=== PATIENT | female | born 1975 | race Caucasian/White ===

== ENCOUNTER 2017-10-31 11:32 | Observation (INO) ==
[2017-10-31] MEDS ORDERED: SODIUM CHLORIDE 0.9% IVPB ONE (13:54)
[2017-10-31] MEDS ORDERED: OXYCODONE Oral CONC 10 MG/0.5 ML ORAL.SYG SL PRN (13:54)
[2017-10-31] MEDS ORDERED: Ondansetron 4 MG/2 ML VIAL IVP PRN (13:54)
[2017-10-31] MEDS ORDERED: *HR* Promethazine 25 MG/ML VIAL IVP PRN (13:54)
[2017-10-31] MEDS ORDERED: VANCOMYCIN IVPB ONE (13:54)
[2017-10-31] MEDS ORDERED: Naloxone 0.4 MG/ML INJ IVP PRN (13:54)
[2017-10-31 14:35] LABS: Basophils # 0.1 K/mcL (0.0-0.2); Basophils % 0.6 %; Eosinophils # 0.4 K/mcL (0.0-0.6); Eosinophils % 3.4 %; Hematocrit 38.6 % (35.3-44.9); Hemoglobin 13.4 g/dL (11.5-15.4); Immature Granulocytes % 0.5 % (0-4); Lymphocytes # 2.5 K/mcL (0.6-4.6); Lymphocytes % 22.8 %; Mean Corpuscular HGB Conc 34.7 g/dL (31.6-35.5); Mean Corpuscular Hemoglobin 28.8 pg (28.0-33.3); Mean Corpuscular Volume 82.8 fL (83.0-100.0); Mean Platelet Volume 9.7 fL (9.4-12.4); Monocytes # 0.8 K/mcL (0.0-1.3); Monocytes % 7.5 %; Neutrophils # 7.2 K/mcL (1.6-8.9); Platelet Count 295 K/mcL (140-400); Red Blood Count 4.66 M/mcL (3.82-4.97); Red Cell Distribution Width 12.5 % (11.5-14.5); Segmented Neutrophils % 65.2 %
[2017-10-31 15:00] LABS: BUN/Creatinine Ratio 20 (6-26); Blood Urea Nitrogen 17 mg/dL (6-20); Calcium 8.9 mg/dL (8.6-10.3); Carbon Dioxide 23 mEq/L (23-29); Chloride 104 mEq/L (98-107); Glucose 316 mg/dL (70-105); Osmolality,Calculated 290 (280-300); Potassium 4.8 mEq/L (3.5-5.1); Sodium 133 mEq/L (136-145); eGFR For Non-African Americans > 60 (> 60)
--- NOTE | 2017-10-31 16:16 | Anesthesia Evaluation PreOp ---
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 Other Medical History: Other (Morbid Obesity) Anesthesia History: No Prior Anesthetic Complications : No (Partial Hysterectomy) Alcohol Use: none Drug use: marijuana Medications and Allergies Atorvastatin 80 mg PO HS 10/31/17 [History] Benztropine [Cogentin] 0.5 mg PO HS 10/31/17 [History] Buspirone HCl 15 mg pe PO TID 10/31/17 [History] HydrOXYzine 10 mg PO HS 10/31/17 [History] HydrOXYzine [HydrOXYzine] 50 mg PO HS 10/31/17 [History] Levothyroxine 300 mcg PO DAILY 10/31/17 [History] Loratadine 10 mg PO DAILY 10/31/17 [History] Olanzapine 20 mg PO HS 10/31/17 [History] Sertraline 200 mg PO DAILY 10/31/17 [History] 3 Allergy/AdvReac Type Severity Reaction Status Date / Time gabapentin AdvReac Fever Verified 01/02/17 13:18 Paroxetine [From Paxil] AdvReac See Verified 01/02/17 13:18 Comments - Meds/Allergy Pre-op Review Medications Reviewed: Yes Allergies Reviewed: Yes Beta Blockers on Current Med List: No Anesthesia Results - Labs 10/31/17 14:25 10/31/17 14:25 - Imaging EKG: report reviewed (SR) Anesthesia Exam Vital Signs/O2 Sat/Glucose, Most Current Temp Pulse Resp BP Pulse Ox 10/31/17 15:27 98.5 F 69 18 116/73 97 10/31/17 14:02 99.1 F 70 16 107/73 98 Height: 5'2 Weight: 248 lbs NPO (# of Hours): MN Pain Scale: 1 - HEENT Pupil (Motor): Pupils equal, EOMI Mallampati: II Teeth: Missing, Poor dentition Oral Opening: Less than or equal to 3 - WALL COVERING INSTALLER LOC: Oriented WALL COVERING INSTALLER Motor: Normal RUE, Normal LUE, Normal RLE, Normal LLE, Normal Face WALL COVERING INSTALLER Sensory: Normal: RUE, LUE, RLE, LLE, Face - Cardiac Rhythm: Regular Murmur: None JVD: No Carotid Bruit: No - Pulmonary Breath Sounds: bilateral Clear Respiratory Effort: Symmetrical Anesthesia Assess/Plan ASA Score: 3 (MO ASTRID) Modified [place] Scale for Level of Consciousness: Cooperative, oriented, and tranquil Anesthetic Plan: General Monitoring Plan: Standard Monitors Recovery Plan: PACU (Discussed GA, agrees to proceed)
[2017-10-31] MEDS ORDERED: Lidocaine -MPF 2% 2 ML VIAL ONE (16:28)
[2017-10-31] MEDS ORDERED: *HR* Propofol 200 MG/20 ML VIAL IVP ONE (16:28)
[2017-10-31] MEDS ORDERED: Ondansetron 4 MG/2 ML VIAL ONE (16:28)
[2017-10-31] MEDS ORDERED: Dexamethasone 4 MG/ML VIAL ONE (16:28)
[2017-10-31] MEDS ORDERED: *HR* FentaNYL (PF) 100 MCG/2 ML VIAL ONE (16:28)
[2017-10-31] MEDS ORDERED: *HR* Rocuronium Bromide 50 MG/5 ML VIAL ONE (16:28)
[2017-10-31] MEDS: Piperacillin/Tazobactam 3.375 GM in 0.9 % Sodium Chloride Mini Bag 100 ML IVPB SCH ×2 (16:31→23:34)
[2017-10-31] MEDS: 0.9 % Sodium Chloride 1,000 ML IVC SCH ×2 (16:31→23:34)
[2017-10-31] MEDS ORDERED: *HR* Labetalol 100 MG/20 ML MDV IVP PRN (17:02)
[2017-10-31] MEDS ORDERED: MORPHINE SUL Oral CONC 10 MG/0.5 ML ORAL.SYG SL PRN (17:02)
[2017-10-31] MEDS ORDERED: *HR* OxyCODONE Immed Rel 5 MG TABLET PO PRN (17:02)
[2017-10-31] MEDS ORDERED: *HR* FentaNYL (PF) 100 MCG/2 ML VIAL IVP PRN (17:02)
[2017-10-31] MEDS ORDERED: Acetaminophen IV 1,000 MG/100 ML INFUS..BTL ONE (17:07)
--- NOTE | 2017-10-31 17:48 | Operative Note ---
Date of procedure: 10/31/17 Pre-op diagnosis: left breast abscess Post-op diagnosis: same Procedure: Left breast abscess incision and drainage Complications: none immediate Anesthesia: BRIAA Surgeon: Anusha Nicholson Was there an mechanic assistant present: No Estimated blood loss (cc): 2 Specimen: aerobic/anaerobic breast abscess cultures Condition: stable Disposition: PACU Procedure in Detail: Patient was brought into operating suite and placed supine on operating table. Sign in was performed and everyone was in agreement. Anesthesia was induced and patient was intubated by anesthesia without incident. Left breast prepped and draped in usual sterile fashion. Time out was performed and everyone was in agreement. Semicircular incision through the skin into the subcutaneous tissue overlying the ballotable area of the inferior NAC was made with an 11 blade. Pus exuded from the wound and aerobic and anaerobic cultures were obtained. The Yankour suction was placed into the abscess cavity to break up any loculations. The wound was irrigated with sterile saline. The abscess cavity was packed with 1/4" iodoform packing, covered with 4x4 gauze and medipore tape. The patient tolerated the procedure well. She was awoken by anesthesia and extubated. She was taken to pacu in stable condition. All lap and instrument counts were correct at the end of the case.
[2017-10-31] MEDS ORDERED: Acetaminophen IV 1,000 MG/100 ML INFUS..BTL IVPB ONE (17:57)
--- NOTE | 2017-10-31 18:22 | Anesthesia Evaluation Post Op ---
Date of Encounter: 10/31/17 Time of Encounter: 18:21 - Vital Signs Vital Signs: Vital Signs/O2 Sat, Most Current Temp Pulse Resp BP Pulse Ox 100 F H 74 12 132/71 96 10/31/17 18:19 10/31/17 18:19 10/31/17 18:19 10/31/17 18:19 10/31/17 18:19 - Lungs Lungs: Clear Ascult./Percussion - Airway Airway: Non-obstructed - Cardiovascular Regular Rate - Mental Status Mental Status: Alert & Oriented, Answers Appropriately - Pain Pain Scale: 3 Pain Scale used: Numeric (1 - 10) - Nausea Vomiting Nausea Vomiting: Not Present - Hydration Hydration: Ice chips, Has not voided - Discharge PostOp Status: Transfer Patient to floor
[2017-11-01] MEDS: Piperacillin/Tazobactam 3.375 GM in 0.9 % Sodium Chloride Mini Bag 100 ML IVPB SCH ×2 (08:14→16:12)
[2017-11-01] MEDS ORDERED: D5% in Water 1,000 ML IVC PRN ×2 (08:50→14:51)
[2017-11-01] MEDS ORDERED: *HR* Dextrose 50 % in Water (Syg) 50 ML SYRINGE IVP PRN ×2 (08:50→14:51)
[2017-11-01] MEDS ORDERED: Dextrose Gel 15 GM/37.5 ML TUBE PO PRN ×4 (08:50→14:51)
[2017-11-01] MEDS ORDERED: Insulin DETEMIR 100 UNIT/ML X5UNITS SQ SCH (09:00)
[2017-11-01] MEDS ORDERED: Acetaminophen 325 MG TABLET PO PRN ×2 (09:54→14:51)
[2017-11-01] MEDS ORDERED: *HR* OxyCODONE/APAP 5/325 TABLET PO PRN (09:58)
--- NOTE | 2017-11-01 10:05 | General Surgery Progress Note ---
<Mikki Mills - Last Filed: 11/01/17 10:03> Date of Encounter: 11/01/17 Time of Encounter: 09:45 - Assessment and Plan (1) Abscess of breast Current Visit: Yes Status: Acute s/p I&D of left breast in OR on 10/31/2017. Packing changed. Site is grossly as expected. Continue Iv Zosyn another 24 hours Referral to for HHC at d/c Daily wound care: remove dressing and packing. Wash with antibacterial soap. Repack with 1/4 inch playing gauze. Cover with a dry dressing. 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 Diabetes mellitus complication status: with unspecified complications Qualified Code(s) : E11.8 - Type 2 diabetes mellitus with unspecified complications; Z79.4 - [facility] (current) use of insulin Subjective Patient reports: no new complaints, feels better, still having pain, pain is less, tolerating a regular diet, afebrile Objective Vital Signs - Last 8 Hours Temp Pulse Resp BP Pulse Ox 11/01/17 07:14 98.0 F 71 17 120/77 95 11/01/17 03:13 98.4 F 73 16 132/81 95 Intake and Output 10/31/17 11/01/17 11/01/17 23:59 07:59 15:59 Intake Total 500 / 500 100 / 100 240 / 240 Output Total 702 / 702 Balance -202 / -202 100 / 100 240 / 240 Intake: IV Fluids 500 / 500 100 / 100 0.9 % Sodium Chloride 1,000 ML 400 / 400 @ 120 mls/hr IVC .[id number] [facility] Rx #:[id number] Zosyn 3.375 GM In 0.9 % Sodium 100 / 100 100 / 100 Chloride (Mini-Bag +) 100 ML @ 25 mls/hr IVPB Q8HR [facility] Rx#: [id number] Oral 240 / 240 Output: Urine 700 / 700 Estimated Blood Loss 2 / 2 Other: Meal Breakfast Percent of Meal Consumed 100% Weight 114 kg Blood Glucose* 373 Patient Weight 11/01/17 23:59 Weight 114 kg - General physical appearance no distress, obese - Eyes normal ocular movement - ENT poor fpc - Neck Neck exam: trachea midline - Respiratory normal expansion, normal respiratory effort - Cardiovascular Cardiovascular exam: Present: RRR, distant heart sounds - Abdomen Abdomen: Present: bowel sounds present, soft, non tender - Incision Incision: Present: open (Left breast I&D site grossly as expected. Packing changed.) - Integumentary no growths - Neurologic CN 2-12 grossly intact, normal coordination - Musculoskeletal normal posture - Psychiatric oriented to time, oriented to person, oriented to place, speech is normal - Labs 10/31/17 14:25 10/31/17 14:25 Diabetes panel 10/31/17 Range/Units 14:25 Sodium 133 L (136-145) mEq/L Potassium 4.8 (3.5-5.1) mEq/L Chloride 104 (98-107) mEq/L Carbon Dioxide 23 (23-29) mEq/L BUN 17 (6-20) mg/dL Creatinine 0.84 (0.60-1.20) mg/dL Glucose 316 H (70-105) mg/dL Calcium 8.9 (8.6-10.3) mg/dL Calcium panel 10/31/17 Range/Units 14:25 Calcium 8.9 (8.6-10.3) mg/dL Pituitary panel 10/31/17 Range/Units 14:25 Sodium 133 L (136-145) mEq/L Potassium 4.8 (3.5-5.1) mEq/L Chloride 104 (98-107) mEq/L Carbon Dioxide 23 (23-29) mEq/L BUN 17 (6-20) mg/dL Creatinine 0.84 (0.60-1.20) mg/dL Glucose 316 H (70-105) mg/dL Calcium 8.9 (8.6-10.3) mg/dL Adrenal panel 10/31/17 Range/Units 14:25 Sodium 133 L (136-145) mEq/L Potassium 4.8 (3.5-5.1) mEq/L Chloride 104 (98-107) mEq/L Carbon Dioxide 23 (23-29) mEq/L BUN 17 (6-20) mg/dL Creatinine 0.84 (0.60-1.20) mg/dL Glucose 316 H (70-105) mg/dL Calcium 8.9 (8.6-10.3) mg/dL Consult Discharge Plan - Plan Instructions: Breast Abscess Drainage (DC) Additional Instructions: Left Breast Daily wound care: remove dressing and packing. Wash with antibacterial soap. Repack with 1/4 inch playing gauze. Cover with a dry dressing. Tape to secure Take ibuprofen for discomfort. You may alternate this with Tylenol. Follow-up in the office as directed. Referrals: Jose D Leach MD [Primary Care Provider] - 11/12/17 10:15 am Mikki Mills CNP [Advanced Practice Nurse] - 11/09/17 8:45 am Prescriptions: Amoxicillin/Clavulanate [Augmentin] 875 mg PO BIDWM #28 tablet Ibuprofen 800 mg PO Q8H PRN #30 tablet PRN Reason: Pain <Anusha Nicholson - Last Filed: 11/02/17 08:42> Date of Encounter: 11/02/17 - Assessment and Plan (1) Abscess of breast Current Visit: Yes Status: Acute Objective Vital Signs - Last 8 Hours Temp Pulse Resp BP Pulse Ox 11/02/17 07:15 98.0 F 63 16 127/81 96 11/02/17 03:50 98.0 F 63 16 119/74 96 Intake and Output 11/01/17 11/02/17 11/02/17 23:59 07:59 15:59 Intake Total 100 / 100 100 / 100 Output Total 450 / 450 1100 / 1100 Balance -350 / -350 -1000 / -1000 Intake: IV Fluids 100 / 100 100 / 100 Zosyn 3.375 GM In 0.9 % Sodium 100 / 100 100 / 100 Chloride (Mini-Bag +) 100 ML @ 25 mls/hr IVPB Q8HR [facility] Rx#: [id number] Output: Urine 450 / 450 1100 / 1100 Other: Weight 114 kg Blood Glucose* 248 154 Patient Weight 11/02/17 23:59 Weight 114 kg - Labs 11/02/17 03:57 11/02/17 03:57 Diabetes panel 11/02/17 Range/Units 03:57 Sodium 137 (136-145) mEq/L Potassium 4.1 (3.5-5.1) mEq/L Chloride 107 (98-107) mEq/L Carbon Dioxide 23 (23-29) mEq/L BUN 17 (6-20) mg/dL Creatinine 0.62 (0.60-1.20) mg/dL Glucose 193 H (70-105) mg/dL Calcium 8.8 (8.6-10.3) mg/dL Calcium panel 11/02/17 Range/Units 03:57 Calcium 8.8 (8.6-10.3) mg/dL Pituitary panel 11/02/17 Range/Units 03:57 Sodium 137 (136-145) mEq/L Potassium 4.1 (3.5-5.1) mEq/L Chloride 107 (98-107) mEq/L Carbon Dioxide 23 (23-29) mEq/L BUN 17 (6-20) mg/dL Creatinine 0.62 (0.60-1.20) mg/dL Glucose 193 H (70-105) mg/dL Calcium 8.8 (8.6-10.3) mg/dL Adrenal panel 11/02/17 Range/Units 03:57 Sodium 137 (136-145) mEq/L Potassium 4.1 (3.5-5.1) mEq/L Chloride 107 (98-107) mEq/L Carbon Dioxide 23 (23-29) mEq/L BUN 17 (6-20) mg/dL Creatinine 0.62 (0.60-1.20) mg/dL Glucose 193 H (70-105) mg/dL Calcium 8.8 (8.6-10.3) mg/dL - Attending Attestation I have personally performed a face to face evaluation on this patient. I have reviewed and agree with the care plan. History and Exam by me shows:
[2017-11-01] MEDS ORDERED: Insulin LISPRO 300 UNITS/3 ML VIAL SQ SCH ×3 (11:30→21:00)
[2017-11-01] MEDS: Loratadine 10 MG TABLET PO SCH (11:38)
[2017-11-01] MEDS: 0.9 % Sodium Chloride 1,000 ML IVC SCH (11:48)
[2017-11-01] MEDS ORDERED: *HR* Promethazine 25 MG/ML VIAL IVP PRN (14:51)
[2017-11-01] MEDS ORDERED: Naloxone 0.4 MG/ML INJ IVP PRN (14:51)
[2017-11-01] MEDS ORDERED: OXYCODONE Oral CONC 10 MG/0.5 ML ORAL.SYG SL PRN (14:51)
[2017-11-01] MEDS ORDERED: Ondansetron 4 MG/2 ML VIAL IVP PRN (14:51)
--- NOTE | 2017-11-01 15:23 | Discharge Summary ---
Orders not resulted at time of discharge: Pending orders 10/31/17 13:54 ECG 12 lead ECG [ECG] Stat 10/31/17 17:39 Culture,Anaerobic [RM] Routine Culture,Wound [RM] Routine 11/02/17 04:00 BMP [Basic Metabolic Panel] AM 0400 Complete Blood Count [HEME] AM 0400 Date of Encounter: 11/02/17 Time of Encounter: 07:00 - Discharge Diagnosis (1) Abscess of breast Priority: Primary Status: Acute (2) T2DM (type 2 diabetes mellitus) Priority: Secondary Status: Acute Qualifiers: Diabetes mellitus half-way insulin use: with half-way use Diabetes mellitus complication status: with unspecified complications Qualified Code(s) : E11.8 - Type 2 diabetes mellitus with unspecified complications; Z79.4 - [facility] (current) use of insulin General Surgery Exam Initial Vital Signs Temp Pulse Resp BP Pulse Ox 99.1 F 70 16 107/73 98 10/31/17 14:02 10/31/17 14:02 10/31/17 14:02 10/31/17 14:02 10/31/17 14:02 Vital Signs Temp Pulse Resp BP Pulse Ox 11/02/17 07:15 98.0 F 63 16 127/81 96 11/02/17 03:50 98.0 F 63 16 119/74 96 11/01/17 23:40 98.3 F 72 16 146/74 97 11/01/17 19:30 98.5 F 70 16 132/77 94 11/01/17 16:01 98.1 F 70 18 129/76 98 11/01/17 11:21 98.0 F 72 18 138/79 97 Intake and Output 11/01/17 11/01/17 11/02/17 15:59 23:59 07:59 Intake Total 340 / 340 100 / 100 100 / 100 Output Total 450 / 450 1100 / 1100 Balance 340 / 340 -350 / -350 -1000 / -1000 Intake: IV Fluids 100 / 100 100 / 100 100 / 100 Zosyn 3.375 GM In 0.9 % Sodium 100 / 100 100 / 100 100 / 100 Chloride (Mini-Bag +) 100 ML @ 25 mls/hr IVPB Q8HR [facility] Rx#: [id number] Oral 240 / 240 Output: Urine 450 / 450 1100 / 1100 Other: Meal Breakfast Percent of Meal Consumed 100% Weight 114 kg Blood Glucose* 392 248 154 Patient Weight 11/02/17 23:59 Weight 114 kg VITAL SIGNS: Reviewed. See [facility] GENERAL: In no apparent distress. HEENT: Normocephalic, atraumatic, extraocular motions intact, oropharynx is pink and moist, poor dentition, multiple dental caries, there is no neck adenopathy or JVD noted. CHEST/RESPIRATORY: The thorax is free from signs of trauma. Lung sounds: clear to auscultation, normal respiratory effort CARDIAC: Regular rate and rhythm. Normal S1 and S2, without murmurs, gallops, or rubs. VASCULAR: No Edema. 2+ peripheral pulses. ABDOMEN: soft, nontender, active bowel sounds INCISION: left breast IND site is as expected. Packing per bedside RN today after shower.. MUSCULOSKELETAL: Good range of motion of all major joints. Extremities without clubbing, cyanosis or edema. NEUROLOGIC EXAM: Alert and oriented x 3. Speech normal. Follows commands. PSYCHIATRIC: Mood normal. SKIN: No rash or lesions. - Hospital Course Hospital course: Ms. Taylor is a 42 year old female who presented on 10/31/2017 with complaints of left breast pain and swelling. She underwent an I&D of the left breast in the OR. Cultures were obtained, but remain pending. Her local wound care and IV antibitoics have been effective. She is afebrile, vital signs are stable, and home healthcare is in place. We will begin discharge planning to home with home health care for wound care and a follow-up in the office in approximately one week. - Time Spent with Patient Total time spent providing and/or coordinating discharge services: - Discharge Medications Prescriptions: Amoxicillin/Clavulanate [Augmentin] 875 mg PO BIDWM #28 tablet Ibuprofen 800 mg PO Q8H PRN #30 tablet PRN Reason: Pain Home Medications: Atorvastatin Calcium [Lipitor] 80 mg PO HS 10/31/17 [History] Benztropine [Cogentin] 0.5 mg PO HS 10/31/17 [History] Buspirone HCl [Buspar] 15 mg PO TID 10/31/17 [History] HydrOXYzine 50 mg PO HS 10/31/17 [History] Levothyroxine Sodium [Synthroid] 300 mcg PO QAM 10/31/17 [History] Loratadine [Allergy Relief] 10 mg PO DAILY 10/31/17 [History] OLANZapine [Zyprexa] 20 mg PO HS 10/31/17 [History] Sertraline [Zoloft] 200 mg PO DAILY 10/31/17 [History] Amoxicillin/Clavulanate [Augmentin] 875 mg PO BIDWM #28 tablet 11/01/17 [Rx] Ibuprofen 800 mg PO Q8H PRN #30 tablet 11/01/17 [Rx] Insulin ASPART [Novolog] 0 unit SQ TIDWM 11/01/17 [History] Insulin Glargine,Hum.rec.anlog [Basaglar Kwikpen U-100] 60 unit SQ BID 11/01/17 [History] Pregabalin [Lyrica] 225 mg PO BID 11/01/17 [History] Propranolol [Inderal] 10 mg PO BID 11/01/17 [History] raNITIdine HCl [Zantac] 150 mg PO BID 11/01/17 [History] Allergies/Adverse Reactions: 3 Allergy/AdvReac Type Severity Reaction Status Date / Time gabapentin AdvReac Fever Verified 11/01/17 14:50 Paroxetine [From Paxil] AdvReac See Verified 11/01/17 14:50 Comments Date of admission: 10/31/17 13:10 Primary care physician: Jose D Leach MD Consults: 11/01/17 09:59 Consult to Case Management [CONS] Stat Comment: Will need [facility] for wound packing in place Discharging clinician: Anusha Nicholson ([place]) Anticipated date of discharge: 11/02/17 - Patient Status Disposition: Home Health Service Condition: Good Functional capacity at discharge: independent ambulation Overall status at discharge: patient is progressing back to baseline - Discharge Instructions Instructions: Breast Abscess Drainage (DC) Follow Up With: Jose D Leach MD [Primary Care Provider] - 11/12/17 10:15 am Mikki Mills CNP [Advanced Practice Nurse] - 11/09/17 8:45 am Additional Instructions: Left Breast Daily wound care: remove dressing and packing. Wash with antibacterial soap. Repack with 1/4 inch playing gauze. Cover with a dry dressing. Tape to secure Take ibuprofen for discomfort. You may alternate this with Tylenol. Follow-up in the office as directed. - Diet and Activity Activity: increase activity as tolerated Diet: advance to your usual diet, diabetic diet
--- NOTE | 2017-11-01 15:34 | Physician Discharge Referral ---
Home Health/Hosp Referral Info Transfer to: Home Health Attending Provider: Dr. Anusha Nicholson Provider in Charge Post Discharge: Other (Dr. Anusha Nicholson) - Diagnosis (1) Abscess of breast Priority: Primary Status: Acute (2) T2DM (type 2 diabetes mellitus) Priority: Secondary Status: Acute - Respiratory Orders Smoking Cessation: Smoking cessation has been advised. For more information, call the [place] Tobacco Quit Line at 3-584-AESF-NOW. - Dressing/Wound Care Site: Left Breast Type of Dressing/Treatments w/Frequency: Daily wound care: remove dressing and packing. Wash with antibacterial soap. Repack with 1/4 inch plain gauze. Cover with a dry dressing. Tape to secure - Activity Activity Orders: Up ad alissa - Services Needed Following services are medically necessary services: Residential Care Orders: Daily wound care: remove dressing and packing. Wash with antibacterial soap. Repack with 1/4 inch plain gauze. Cover with a dry dressing. Tape to secure - Transfer Medications Prescriptions: Amoxicillin/Clavulanate [Augmentin] 875 mg PO BIDWM #28 tablet Ibuprofen 800 mg PO Q8H PRN #30 tablet PRN Reason: Pain Home Medications: Atorvastatin Calcium [Lipitor] 80 mg PO HS 10/31/17 [History] Benztropine [Cogentin] 0.5 mg PO HS 10/31/17 [History] Buspirone HCl [Buspar] 15 mg PO TID 10/31/17 [History] HydrOXYzine 50 mg PO HS 10/31/17 [History] Levothyroxine Sodium [Synthroid] 300 mcg PO QAM 10/31/17 [History] Loratadine [Allergy Relief] 10 mg PO DAILY 10/31/17 [History] OLANZapine [Zyprexa] 20 mg PO HS 10/31/17 [History] Sertraline [Zoloft] 200 mg PO DAILY 10/31/17 [History] Amoxicillin/Clavulanate [Augmentin] 875 mg PO BIDWM #28 tablet 11/01/17 [Rx] Ibuprofen 800 mg PO Q8H PRN #30 tablet 11/01/17 [Rx] Insulin ASPART [Novolog] 0 unit SQ TIDWM 11/01/17 [History] Insulin Glargine,Hum.rec.anlog [Basaglar Kwikpen U-100] 60 unit SQ BID 11/01/17 [History] Pregabalin [Lyrica] 225 mg PO BID 11/01/17 [History] Propranolol [Inderal] 10 mg PO BID 11/01/17 [History] raNITIdine HCl [Zantac] 150 mg PO BID 11/01/17 [History] Allergies/Adverse Reactions: 3 Allergy/AdvReac Type Severity Reaction Status Date / Time gabapentin AdvReac Fever Verified 11/01/17 14:50 Paroxetine [From Paxil] AdvReac See Verified 11/01/17 14:50 Comments Certification: Further, I certify that my clinical findings support that this patient is homebound (i.e. absences from home require considerable and taxing effort and are for medical reasons or church services or infrequently or short duration when for other reasons) because: Homebound Reason: Patient requires assistance of a person or device to safely leave home, Leaving home requires considerable and taxing effort due to condition Attestation: My signature below is to certify that this patient is under my care and that I, or nurse practitioner, or a physician's restaurant assistant working with me, has a face-to -face encounter with this patient.
[2017-11-01] MEDS: Insulin LISPRO 300 UNITS/3 ML VIAL SQ SCH (16:54)
[2017-11-01] MEDS: Insulin DETEMIR 100 UNIT/ML X5UNITS SQ SCH (20:41)
[2017-11-02] MEDS: Piperacillin/Tazobactam 3.375 GM in 0.9 % Sodium Chloride Mini Bag 100 ML IVPB SCH (00:46)
[2017-11-02 04:16] LABS: Basophils # 0.1 K/mcL (0.0-0.2); Basophils % 0.8 %; Eosinophils # 0.2 K/mcL (0.0-0.6); Eosinophils % 2.2 %; Hematocrit 34.5 % (35.3-44.9); Immature Granulocytes % 0.4 % (0-4); Lymphocytes # 4.1 K/mcL (0.6-4.6); Lymphocytes % 38.5 %; Mean Corpuscular HGB Conc 33.6 g/dL (31.6-35.5); Mean Corpuscular Volume 83.1 fL (83.0-100.0); Mean Platelet Volume 9.8 fL (9.4-12.4); Monocytes # 0.8 K/mcL (0.0-1.3); Monocytes % 7.4 %; Neutrophils # 5.4 K/mcL (1.6-8.9); Platelet Count 328 K/mcL (140-400); Red Blood Count 4.15 M/mcL (3.82-4.97); Red Cell Distribution Width 12.4 % (11.5-14.5); Segmented Neutrophils % 50.7 %
[2017-11-02 04:23] LABS: Hemoglobin 11.6 g/dL (11.5-15.4)
[2017-11-02 04:34] LABS: BUN/Creatinine Ratio 27 (6-26); Blood Urea Nitrogen 17 mg/dL (6-20); Calcium 8.8 mg/dL (8.6-10.3); Carbon Dioxide 23 mEq/L (23-29); Chloride 107 mEq/L (98-107); Glucose 193 mg/dL (70-105); Osmolality,Calculated 291 (280-300); Potassium 4.1 mEq/L (3.5-5.1); Sodium 137 mEq/L (136-145); eGFR For Non-African Americans > 60 (> 60)
[2017-11-02 07:16] VITALS: BP 127/81
[2017-11-02] MEDS ORDERED: Piperacillin/Tazobactam 3.375 GM in 0.9 % Sodium Chloride Mini Bag 100 ML IVPB SCH (07:31)
[2017-11-02] MEDS: Loratadine 10 MG TABLET PO SCH (07:49)
[2017-11-02] MEDS: Insulin LISPRO 300 UNITS/3 ML VIAL SQ SCH (07:50)
[2017-11-02] MEDS: Insulin DETEMIR 100 UNIT/ML X5UNITS SQ SCH (07:51)
== END 2017-11-02 10:06 | disposition home health service (06) ==
LOC: INTOOBSV 13:10 → 3BNU 13:10
PROVIDERS: ADMIT Surgery; ATTEND Surgery